=== PATIENT | male | born 1960 | race Hispanic/Latino ===

== ENCOUNTER 2019-02-13 10:20 | Emergency (ER) | payer SELFPAY ==
[~2019-02-13] VITALS: Ht 160 cm; Wt 50.0 kg
[~2019-02-13 10:20] MED LIST: HYDROCO/APAP1 TA9 PO; KEFLEX500 MG PO
[2019-02-13 10:43] VITALS: BP 124/78
== END 2019-02-13 10:43 | disposition home or self-care (01) | DRG 951 ==
LOC: ED 10:20
DX: Z48.02 Encounter for removal of sutures (principal)

== ENCOUNTER 2022-06-18 09:35 | Emergency (ER) | payer SELFPAY ==
[~2022-06-18] VITALS: Ht 160 cm; Wt 59.9 kg
[2022-06-18] MEDS ORDERED: VALACYCLOVIR HYD1 GM PO (12:23)
[2022-06-18 12:46] VITALS: BP 122/76
== END 2022-06-18 12:54 | disposition home or self-care (01) | DRG 596 ==
LOC: ED 09:35
DX: B02.9 Zoster without complications (principal)